=== PATIENT | female | born 1950 | race Caucasian/White ===

== ENCOUNTER → 2017-09-26 | Outpatient (CLI) | payer MEDICARE, OTHER ==
[2016-05-22 15:39] VITALS: BP 159/89
--- NOTE | 2017-09-26 12:21 | RAD ---
EXAM: Carotid Doppler sonogram. HISTORY: Stenosis. TECHNIQUE: Scott scale and color Doppler sonographic evaluation of the neck with spectral waveform analysis was performed and static images are submitted for review. FINDINGS: There is mild atherosclerotic plaque within the right internal carotid artery and moderate atherosclerotic plaque within the left internal carotid artery. The peak systolic velocity within the right common carotid artery is 112 cm/sec. The peak systolic velocity within the right internal carotid artery is 100 cm/sec and the end diastolic velocity within the right internal carotid artery is 34 cm/sec. The right ICA/CCA ratio is 1.3. The peak systolic velocity within the left common carotid artery is 107 cm/sec. The peak systolic velocity within the left internal carotid artery is 130 cm/sec and the end diastolic velocity within the left internal carotid artery is 51 cm/sec. The left ICA/CCA ratio is 1.7. There is normal antegrade flow within both vertebral arteries. IMPRESSION: 1. Elevated peak systolic velocity within the left ICA. Despite normal ICA to CCA ratio, this suggests 50-69% stenosis. This is slightly increased compared to the prior study dated 05/11/2016. 2. No Doppler evidence of greater than 50% stenosis within the right internal carotid artery. 3. Mild right and moderate left internal carotid artery atherosclerotic plaque. PQRS Compliance Statement - Stenosis calculations for CT, MR and conventional angiography are based upon measurement of the distal ICA diameter in accordance with the NASCET methodology. Stenosis calculations for carotid ultrasound studies are derived from validated velocity criteria which are known to correlate with the NASCET methodology. Electronically signed by: Bekah Peña MD (09/26/2017 12:17 PM) [place] [id number]
== END | disposition home or self-care (01) ==
LOC: US 10:56
PROVIDERS: ATTEND Family Medicine
DX: I65.23 Occlusion and stenosis of bilateral carotid arteries (principal)
CPT/HCPCS: 93880

== ENCOUNTER → 2019-01-17 | Outpatient (CLI) | payer MEDICARE, OTHER ==
[2017-12-20 17:04] VITALS: BP 131/74
[~2019-01-17] MED LIST: IBUP400T18 PO
--- NOTE | 2019-01-17 17:28 | EKG ---
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
== END | disposition home or self-care (01) ==
LOC: EKG 14:33
PROVIDERS: ATTEND Family Medicine
DX: M67.472 Ganglion, left ankle and foot (principal)
CPT/HCPCS: 93005

== ENCOUNTER → 2019-01-25 | Outpatient (CLI) | payer MEDICARE, OTHER ==
[2017-12-20 17:04] VITALS: BP 131/74
--- NOTE | 2019-01-25 11:50 | RAD ---
EXAM: Carotid Doppler sonogram. HISTORY: Hypertension. TECHNIQUE: Scott scale and color Doppler sonographic evaluation of the neck with spectral waveform analysis was performed and static images are submitted for review. FINDINGS: There is moderate atherosclerotic plaque within the left greater than right carotid bulbs and proximal internal carotid arteries. The peak systolic velocity within the right common carotid artery is 103 cm/sec. The peak systolic velocity within the right internal carotid artery is 90 cm/sec and the end diastolic velocity within the right internal carotid artery is 29 cm/sec. The right ICA/CCA ratio is 1.0. The peak systolic velocity within the left common carotid artery is 115 cm/sec. The peak systolic velocity within the left internal carotid artery is 115 cm/sec and the end diastolic velocity within the left internal carotid artery is 31 cm/sec. The left ICA/CCA ratio is 1.0. There is normal antegrade flow within both vertebral arteries. IMPRESSION: 1. No Doppler evidence of hemodynamically significant stenosis within the carotid or vertebral arteries. 2. Moderate atherosclerotic plaque within the left greater than right carotid bulbs and proximal internal carotid arteries. PQRS Compliance Statement - Stenosis calculations for CT, MR and conventional angiography are based upon measurement of the distal ICA diameter in accordance with the NASCET methodology. Stenosis calculations for carotid ultrasound studies are derived from validated velocity criteria which are known to correlate with the NASCET methodology. Electronically signed by: Bekah Peña MD (01/25/2019 11:47 AM) [place] [id number]
== END | disposition home or self-care (01) ==
LOC: US 10:23
PROVIDERS: ATTEND Physician Assistant
DX: I65.23 Occlusion and stenosis of bilateral carotid arteries (principal); I10 Essential (primary) hypertension; E78.49 Other hyperlipidemia
CPT/HCPCS: 93880

== ENCOUNTER 2019-04-14 11:15 | Emergency (ER) | payer MEDICARE, OTHER ==
[~2019-04-14] VITALS: Ht 165.1 cm; Wt 74.1 kg
[2019-04-14 11:44] LABS: BASO % 1 % (0-3); EOS # 0.1 x10^3/uL (0.0-0.7); EOS % 1 % (0-3); HEMATOCRIT 39.2 % (36.0-47.0); HEMOGLOBIN 13.1 g/dL (12.0-15.5); LYMPH # 2.4 x10^3/uL (1.0-4.8); LYMPH % 29 % (24-48); MEAN CORPUSCULAR HEMOGLOBIN 30 pg (25-35); MEAN CORPUSCULAR HGB CONC 34 g/dL (31-37); MEAN CORPUSCULAR VOLUME 89 fL (79-100); MONO # 0.5 x10^3/uL (0.0-1.1); MONO % 7 % (0-9); NEUT # 5.1 x10^3uL (1.8-7.7); NEUT % 62 % (31-73); PLATELET COUNT 300 x10^3/uL (140-400); RED CELL DISTRIBUTION WIDTH 12.8 % (11.5-14.5); WHITE BLOOD COUNT 8.1 x10^3/uL (4.0-11.0)
[2019-04-14 11:52] LABS: CALCIUM 9.5 mg/dL (8.5-10.1); CREATININE 0.9 mg/dL (0.6-1.0); GFR 61.9; POTASSIUM 4.1 mmol/L (3.5-5.1)
--- NOTE | 2019-04-14 12:04 | PHYS DOC ---
Past History Past Medical History: Asthma, High Cholesterol, Hypertension Past Surgical History: Hysterectomy, Tonsillectomy Alcohol Use: None Drug Use: None Adult General Chief Complaint Chief Complaint: CHEST PAIN HPI HPI Patient is a 69-year-old female who presents with report of chest discomfort that started earlier today. She states that at its worse it was a 3 out of 10 and states that currently is about a 1 out of 10. She states that she had been seen by her primary provider and had blood work drawn on the . She was instructed to come into the emergency room today for concerns of possible blood clot due to elevated d-dimer. Patient does describe the pain in her chest as sharp and stabbing in nature. She indicates that it's in the left lower chest and states the pain is worsened with movements. She denies worsening of pain with respirations. She does indicate that she has had a cough. She also states that sounds like she has gurgling in her chest, making her feel like there is fluid in her lungs.[] Review of Systems Review of Systems Constitutional: Denies fever or chills [] Respiratory: Positive cough without shortness of breath [] Cardiovascular: No additional information not addressed in HPI [] GI: Denies abdominal pain, nausea, vomiting or diarrhea [] Integument: Denies rash or skin lesions [] Neurologic: Denies headache, focal weakness or sensory changes [] All other systems were reviewed and found to be within normal limits, except as documented in this note. Allergies Allergies Allergies Coded Allergies Type Severity Reaction Last Updated Verified No Known Drug Allergies 12/20/17 No Physical Exam Physical Exam Constitutional: Well developed, well nourished, no acute distress, non-toxic appearance. [] HENT: Normocephalic, atraumatic, bilateral external ears normal, oropharynx moist, no oral exudates, nose normal. [] Eyes: PERRLA, EOMI, conjunctiva normal, no discharge. [] Neck: Normal range of motion, no tenderness, supple, no stridor. [] Cardiovascular: Regular rate and rhythm[] Lungs & Thorax: Bilateral breath sounds clear to auscultation [] Abdomen: Bowel sounds normal, soft, no tenderness. [] Skin: Warm, dry, no erythema, no rash. [] Extremities: No tenderness, no cyanosis, no clubbing, ROM intact, no edema. [] Neurologic: Alert and oriented X 3, no focal deficits noted. [] Current Patient Data Vital Signs Vital Signs Date Time Temp Pulse Resp B/P (MAP) Pulse Ox O2 Delivery O2 Flow Rate FiO2 04/14/19 11:15 78 16 98 Room Air Lab Results Laboratory Tests Test 04/14/19 10:21 White Blood Count 8.1 x10^3/uL (4.0-11.0) Red Blood Count 4.40 x10^6/uL (3.50-5.40) Hemoglobin 13.1 g/dL (12.0-15.5) Hematocrit 39.2 % (36.0-47.0) Mean Corpuscular Volume 89 fL (79-100) Mean Corpuscular Hemoglobin 30 pg (25-35) Mean Corpuscular Hemoglobin Concent 34 g/dL (31-37) Red Cell Distribution Width 12.8 % (11.5-14.5) Platelet Count 300 x10^3/uL (140-400) Neutrophils (%) (Auto) 62 % (31-73) Lymphocytes (%) (Auto) 29 % (24-48) Monocytes (%) (Auto) 7 % (0-9) Eosinophils (%) (Auto) 1 % (0-3) Basophils (%) (Auto) 1 % (0-3) Neutrophils # (Auto) 5.1 x10^3uL (1.8-7.7) Lymphocytes # (Auto) 2.4 x10^3/uL (1.0-4.8) Monocytes # (Auto) 0.5 x10^3/uL (0.0-1.1) Eosinophils # (Auto) 0.1 x10^3/uL (0.0-0.7) Basophils # (Auto) 0.0 x10^3/uL (0.0-0.2) EKG EKG EKG demonstrates normal sinus rhythm with rate of 67.[] Radiology/Procedures Radiology/Procedures [] Impressions: PROCEDURE: PORTABLE CHEST 1V EXAM: CHEST 1 VIEW History: Chest pain COMPARISON: None available. TECHNIQUE: Single portable radiograph of the chest FINDINGS: The cardiac silhouette is unremarkable. The lungs are clear bilaterally. The costophrenic sulci are clear and well demarcated. . IMPRESSION: No radiographic evidence of an acute cardiopulmonary process. Electronically signed by: Roberto Chavez MD (04/14/2019 12:19 PM) [facility] Course & Med Decision Making Course & Med Decision Making Pertinent Labs and Imaging studies reviewed. (See chart for details) [] Dragon Disclaimer Dragon Disclaimer This electronic medical record was generated, in whole or in part, using a voice recognition dictation system. Departure Departure: Impression: Primary Impression: Atypical chest pain Disposition: HOME, SELF-CARE Condition: STABLE Referrals: ALEXEY RODRIGUEZ MD (PCP) Patient Instructions: Chest Pain (Nonspecific) JASMINE MILLAN Jr. DO Apr 14, 2019 12:04
[2019-04-14 12:05] LABS: ALBUMIN 3.9 g/dL (3.4-5.0); ALBUMIN/GLOBULIN RATIO 1.2 (1.0-1.7); MAGNESIUM 2.1 mg/dL (1.8-2.4); TOTAL BILIRUBIN 0.4 mg/dL (0.2-1.0); TOTAL PROTEIN 7.1 g/dL (6.4-8.2)
--- NOTE | 2019-04-14 12:22 | RAD ---
EXAM: CHEST 1 VIEW History: Chest pain COMPARISON: None available. TECHNIQUE: Single portable radiograph of the chest FINDINGS: The cardiac silhouette is unremarkable. The lungs are clear bilaterally. The costophrenic sulci are clear and well demarcated. . IMPRESSION: No radiographic evidence of an acute cardiopulmonary process. Electronically signed by: Roberto Chavez MD (04/14/2019 12:19 PM) [facility]
[2019-04-14 12:23] VITALS: BP 139/71
--- NOTE | 2019-04-16 06:42 | EKG ---
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
--- NOTE | 2019-04-19 17:21 | EKG ---
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
== END 2019-04-14 12:45 | disposition home or self-care (01) ==
LOC: ER 11:15
DX: R07.89 Other chest pain (principal); J45.909 Unspecified asthma, uncomplicated; E78.00 Pure hypercholesterolemia, unspecified; I10 Essential (primary) hypertension
CPT/HCPCS: 36415; 71045; 80053; 83735; 83880; 84484; 85025; 85379; 93005; 99285

== ENCOUNTER 2019-07-20 15:11 | Emergency (ER) | payer MEDICARE, OTHER ==
[~2019-07-20] VITALS: Ht 165.1 cm; Wt 75.1 kg
[2019-07-20 15:15] VITALS: BP 167/79
--- NOTE | 2019-07-20 18:33 | PHYS DOC ---
Past History Past Medical History: Asthma, High Cholesterol, Hypertension Past Surgical History: Hysterectomy, Tonsillectomy Alcohol Use: None Drug Use: None General Adult EDM: Chief Complaint: SHORTNESS OF BREATH HPI: HPI: Patient is a 69-year-old female who presented to ER today wanting to be tested for COVID-19. Patient is concerned that she may have CoviD- 19 because she went to the grocery store yesterday, and 1 of the worker over there appeared to be sick. Patient says she feels like she had a cold, has some body aches, having some dry cough but no trouble breathing at rest. Patient said when she was sweeping the floor she has some shortness of air but was not much. Patient denies any chest pain, no fever. Review of Systems: Review of Systems: Constitutional: Denies fever or chills Eyes: Denies change in visual acuity HENT: Denies nasal congestion or sore throat Respiratory: POSITIVE FOR cough , positive shortness of breath Cardiovascular: Denies chest pain or edema GI: Denies abdominal pain, nausea, vomiting, bloody stools or diarrhea : Denies dysuria Musculoskeletal: Denies back pain or joint pain Integument: Denies rash Neurologic: Denies headache, focal weakness or sensory changes Endocrine: Denies polyuria or polydipsia Lymphatic: Denies swollen glands Psychiatric: Denies depression or anxiety Heart Score: Risk Factors: Risk Factors: DM, Current or recent (<one month) smoker, HTN, HLP, family history of CAD, obesity. Risk Scores: Score 0 - 3: 2.5% MACE over next 6 weeks - Discharge Home Score 4 - 6: 20.3% MACE over next 6 weeks - Admit for Clinical Observation Score 7 - 10: 72.7% MACE over next 6 weeks - Early Invasive Strategies Allergies: Allergies: Allergies Coded Allergies Type Severity Reaction Last Updated Verified No Known Drug Allergies 12/20/17 No Physical Exam: PE: no physical exam was done because patient declined treatment, she walked out when she was told that she does not meet criteria for COVID-19 testing. Current Patient Data: Vital Signs: Vital Signs Date Time Temp Pulse Resp B/P (MAP) Pulse Ox O2 Delivery O2 Flow Rate FiO2 07/20/19 15:15 98.5 74 16 167/79 (108) 99 4/3/20 15:11 Room Air EKG: EKG: [] Radiology/Procedures: Radiology/Procedures: [] Course & Med Decision Making: Course & Med Decision Making COVID-19 CRITERIA: The patient was evaluated during the global COVID-19 pandemic, and that diagnosis was considered upon the initial presentation. However she had no fever, no recent exposure to anybody who tested positive for covid 19, no recent exposure to anybody who was suspected to have COVID19. Patient did not travel anywhere recently. Patient has a history of asthma but no significant COMORBIDITIES. Her vital signs was within normal limits. She had no lower respiratory symptoms. Granted that she is 69-year old HOWEVER she does not meet criteria set by the state AT THIS TIME to be tested for COVID-19. This physician informed that patient does not meet criteria to be tested FOR COVID-19. patient became upset and walked out. This physician did NOT have the chance to examine patient. This physician informed patient that we can perform lab work, chest xray, do EKG, check for strep or influenza but patient declined. She said she was sure that she did not have the flu or strep, she did not need to have a chest xray done because she did not have chest pain, soa at rest or productive cough she said. Dragon Disclaimer: Sherry Disclaimer: This electronic medical record was generated, in whole or in part, using a voice recognition dictation system. Departure Departure: Impression: Primary Impression: Left against medical advice Additional Impression: Viral syndrome Disposition: AGAINST MEDICAL ADVICE Condition: STABLE Referrals: ALEXEY RODRIGUEZ MD (PCP) ALEXEY NYE DO Jul 20, 2019 18:33
== END 2019-07-20 16:03 | disposition left against medical advice (07) ==
LOC: ER 15:11
DX: B34.9 Viral infection, unspecified (principal); Z53.29 Procedure and treatment not carried out because of patient's decision for other reasons; J45.909 Unspecified asthma, uncomplicated; I10 Essential (primary) hypertension; E78.00 Pure hypercholesterolemia, unspecified
CPT/HCPCS: 99281

== ENCOUNTER 2020-12-29 15:17 | Emergency (ER) | payer MEDICARE, OTHER ==
[~2020-12-29] VITALS: Ht 165.1 cm; Wt 70.9 kg
[2020-12-29 15:25] VITALS: BP 156/86
--- NOTE | 2020-12-29 15:35 | PHYS DOC ---
Past History Past Medical History: Asthma, High Cholesterol, Hypertension Past Surgical History: Cholecystectomy, Hysterectomy, Tonsillectomy, Other Additional Past Surgical Histo: sinus surgery, trigger thum Alcohol Use: None Drug Use: None Adult General Chief Complaint Chief Complaint: LACERATION/AVULSION [facility] HPI Patient is a 70-year-old female presenting for hand laceration. She was using a mandolin cutter to cut a carrot when she accidentally cut her second and third digits of the left hand. She reports cutting the distal tip of the pad of her pointer finger and took some skin out of the finger on the posterior portion of her DIP. Her tetanus is not up-to-date, she does not use any blood thinners. She has complete motor or sensory neuro function of her left upper extremity. She placed compression on site of bleeding and presented to our ER immediately for evaluation Review of Systems Review of Systems Fourteen body systems of review of systems have been reviewed. See HPI for pertinent positives and negative responses, other ford all other systems are negative, non-pertinent or non-contributory Allergies Allergies Allergies Coded Allergies Type Severity Reaction Last Updated Verified Penicillins Allergy Unknown 12/29/20 Yes ciprofloxacin Allergy Unknown 12/29/20 Yes Physical Exam Physical Exam Constitutional: Well developed, well nourished, no acute distress, non-toxic appearance. HENT: Normocephalic, atraumatic, bilateral external ears normal, oropharynx moist, no oral exudates, nose normal. Eyes: PERRLA, EOMI, conjunctiva normal, no discharge. Neck: Normal range of motion, no tenderness, supple, no stridor. Cardiovascular: Heart rate regular per monitor Lungs & Thorax: No respiratory distress or accessory muscle use, bilateral chest rise Abdomen: Abdomen soft, non-tender, bowel sounds present in all quadrants, no guarding or rebound, nonacute abdomen. Skin: Warm, dry, no erythema, no rash. Patient had superficial laceration to epidermis only on pad of the second digit without nailbed involvement. Patient has minor chunk of skin missing approximately 3 mm x 3 mm in diameter on posterior aspect overlying DIP without underlying muscle/tendon/neuro involvement etc. Back: No tenderness, no CVA tenderness. Extremities: No tenderness, no cyanosis, no clubbing, ROM intact, no edema. Neurologic: Alert and oriented X 3, medial radial and ulnar nerves of left upper extremity intact, normal motor & sensory function, no focal deficits noted. Psychologic: Affect normal, judgement normal, mood normal. Current Patient Data Vital Signs Vital Signs Date Time Temp Pulse Resp B/P (MAP) Pulse Ox O2 Delivery O2 Flow Rate FiO2 12/29/20 15:25 98.7 71 18 156/86 (109) 97 Room Air EKG EKG [] Radiology/Procedures Radiology/Procedures [] Heart Score C/O Chest Pain: No Risk Factors: Risk Factors: DM, Current or recent (<one month) smoker, HTN, HLP, family history of CAD, obesity. Risk Scores: Risk Factors: DM, Current or recent (<one month) smoker, HTN, HLP, family history of CAD, obesity. Course & Med Decision Making Course & Med Decision Making ABCs unremarkable. I disclosed entirety of ER findings and discussed most likely diagnosis of uncomplicated, superficial hand laceration to left hand. Tetanus updated. Hemostasis achieved with direct pressure. Wound irrigated thoroughly with wound solution. Evaluated without concern for foreign body or other concerning findings. Joint decision to defer invasive intervention such as sutures given superficial extent of laceration, and instead, joint decision made to place triple antibiotic ointment and compressive dressing over areas. Plan of care discussed at length with need for close outpatient follow-up to review today's ER visit stressed. Strict return precautions were also discussed at length with good understanding verbalized by patient. Patient voiced understanding and agreement with the plan. Patient knows to come back for repeat evaluation if concerning signs or symptoms present prior to outpatient follow- up. Hemodynamically stable, ambulatory and well-appearing at time of disposition. Dragon Disclaimer Dragon Disclaimer This electronic medical record was generated, in whole or in part, using a voice recognition dictation system. Departure Departure: Impression: Primary Impression: Laceration of finger of left hand without damage to nail Disposition: HOME / SELF CARE / HOMELESS Condition: STABLE Referrals: ALEXEY RODRIGUEZ MD (PCP) Additional Instructions: You were seen for a laceration. Keep the area clean and dry for the next 24 hours. Return to the ED immediately if you develop any signs of infection like increased pain, redness, fever, or purulent (pus) drainage. Do not take baths, submerge the wound, or use a hot tub for prolonged amounts of time until wound is healed. ROBERTO MONTIEL DO Dec 29, 2020 15:35
[2020-12-29] MEDS ORDERED: NEOMY/BACITR/POLYMYXIN OINT PACKET. TP ONE (15:45)
[2020-12-29] MEDS ORDERED: DIPH,PERTUSS(ACELL),TET VAC/PF 0.5 ML SYRINGE. VAX IM ONE (15:45)
== END 2020-12-29 16:00 | disposition home or self-care (01) ==
LOC: ER 15:17
DX: S61.211A Laceration without foreign body of left index finger without damage to nail, initial encounter (principal); J45.909 Unspecified asthma, uncomplicated; E78.00 Pure hypercholesterolemia, unspecified; I10 Essential (primary) hypertension; Z88.0 Allergy status to penicillin; Z88.1 Allergy status to other antibiotic agents; W27.4XXA Contact with kitchen utensil, initial encounter; Y93.89 Activity, other specified; Y92.89 Other specified places as the place of occurrence of the external cause; Y99.8 Other external cause status
CPT/HCPCS: 90471; 90715; 99283

== ENCOUNTER → 2021-03-17 | Outpatient (CLI) | payer MEDICARE, OTHER ==
--- NOTE | 2021-03-17 17:08 | RAD ---
EXAMINATION: US DPLX CAROTID BILAT CLINICAL HISTORY: Left carotid stenosis, hypertension TECHNIQUE: Evaluation of the bilateral carotid, vertebral, and subclavian arteries performed with gra y scale, color Doppler, and spectral Doppler sonographic imaging. COMPARISON: 01/25/2019 FINDINGS: CCA Peak Systolic Velocity (cm/sec): Right: 98 Left: 76 ICA Peak Systolic Velocity (cm/sec): Right: 107 Left: 175 ICA End Diastolic Velocity (cm/sec): Right: 30 Left: 46 ECA Peak Systolic Velocity (cm/sec): Right: 128 Left: 145 Vertebrals (cm/sec): Right: 71 Left: 64 ICA/CCA Systolic Velocity Ratio: Right: 1.1 Left: 2.3 Plaque distribution: Minimal calcified plaque at the right carotid bifurcation. Mild to moderate calc ified plaque at the left carotid bifurcation and proximal internal carotid artery. IMPRESSION: Estimated 50-69% stenosis in the left internal carotid artery. No evidence of hemodynamically significant stenosis in the right carotid arterial system. Electronically signed by: Dany Carroll DO (03/17/2021 5:05 PM) [id number]
== END ==
LOC: US 13:41
PROVIDERS: ATTEND Family Medicine
DX: I65.23 Occlusion and stenosis of bilateral carotid arteries (principal); I10 Essential (primary) hypertension
CPT/HCPCS: 93880